=== PATIENT | male | born 1960 | race Caucasian/White ===

== ENCOUNTER 2022-09-22 21:27 | Emergency (ER) | payer OTHER, SELFPAY ==
[2022-09-22 21:36] VITALS: BP 159/103; PULSE 78; RESP 16; TEMP 36.2; O2SAT 98
--- NOTE | 2022-09-22 22:26 | ED_ITS ---
HPI - General Adult General Chief complaint: Abdominal Pain Stated complaint: passing a gallstone Time Seen by Provider: 09/22/22 21:37 History of Present Illness HPI narrative: 62-year-old man presenting to the emergency department with severe low abdominal cramping pain beginning around 6 hours ago. Has been trying to have a bowel movement notes rather hard stool. Been 2 days since he has had a bowel movement. He is normally very regular at 7:00 a.m. every morning. Adamantly wh en he had a bowel movement a couple of days ago this would been the last time he also passed gas. Dot had any fever. Sub would vomited. The history of kidney stones with recent lithotripsy. He is not having any trouble urinating. No dysuria no hematuria. No abdominal surgeries other than this renal procedure. He does have some discomfort into his back. Has had back ache periodically. 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 Related Data Allergies Allergy/AdvReac Type Severity Reaction Status Date / Time No Known Drug Allergies Allergy Verified 09/22/22 21:36 Review of Systems Status of ROS: Reports: 6 or more systems reviewed and unremarkable except as noted in History and below PFSH PFS Social History Smoking Status: Unknown if ever smoked Exam Narrative: Exam Narrative: I find With the hunched over the counter/desk in the room. Clearly uncomfortable. Breathing easily though. Lungs appear to be clear. Heart in regular rate and rhythm. Abdomen with faint bowel sounds by do think they are present. Is mild to moderately tender to palpation through the low abdomen. Without peritoneal signs. No flank pain. Const: Vital Signs, click to edit/add: Vital Signs - 24 hr 09/22/22 21:36 Temperature 97.2 F L Pulse Rate [Left P ulse Oximeter] 78 Respiratory Rate 16 Blood Pressure [Ri ght Upper Arm] 159/103 H Pulse Oximetry 98 Oxygen Delivery Me thod Room Air Documenting provider has reviewed patient's vital signs: yes Course Vital Signs Vital signs: Initial Vital Signs Temperature 97.2 F L 09/22/22 21:36 Temperature Source Temporal Artery Scan 09/22/22 21:36 Pulse Rate 78 09/22/22 21:36 Pulse Rhythm Regular 09/22/22 21:36 Respiratory Rate 16 09/22/22 21:36 Blood Pressure 159/103 H 09/22/22 21:36 Blood Pressure Mean 121 H 09/22/22 21:36 Blood Pressure Position Sitting 09/22/22 21:36 Pulse Oximetry 98 09/22/22 21:36 Oxygen Delivery Method Room Air 09/22/22 21:36 Vital Signs Temperature 97.2 F L 09/22/22 21:36 Pulse Rate 78 09/22/22 21:36 Respiratory Rate 16 09/22/22 21:36 Blood Pressure 159/103 H 09/22/22 21:36 Pulse Oximetry 98 09/22/22 21:36 Oxygen Delivery Method Room Air 09/22/22 21:36 Temperature 97.2 F L 09/22/22 21:36 Pulse Rate 78 09/22/22 21:36 Respiratory Rate 16 09/22/22 21:36 Blood Pressure 159/103 H 09/22/22 21:36 Pulse Oximetry 98 09/22/22 21:36 Oxygen Delivery Method Room Air 09/22/22 21:36 Medical Decision Making MDM Narrative Medical decision making narrative: Will be doing flat plate imaging initially looking for degree of stool retention and evidence of free air. Certainly could be constipation related pain. Check labs IV fluids he like something for pain. Could be kidney stone as well. Though per him this would be atypical. (unfortunately Mr. Palacios left abruptly reportedly declaring his ER room too small) Discharge Plan Discharge Patient Disposition: Left Against Medical Advice Stand Alone Forms: [facility] Info Instructions
--- NOTE | 2022-09-22 22:30 | ED.NURSE ---
[employer] enters room to place IV. Pt states, I'm not getting an IV and I'm not staying in this little room, I can tell you that. I'm leaving! [employer] states, Okay, I will bring you an AMA form that states you are leaving against medical advice. [employer] brings pt AMA form and pt signs form and leaves.
== END 2022-09-22 22:46 | disposition left against medical advice (07) ==
PROVIDERS: Emergency Provider Family Medicine
DX: Z53.29 Procedure and treatment not carried out because of patient's decision for other reasons (principal)
CPT/HCPCS: 80048; 80076; 81001; 83605; 83690; 85025; 85379; 86140; 99283